=== PATIENT | male | born 1970 | race Caucasian/White ===

== ENCOUNTER 2024-05-29 06:52 | Outpatient (OUT) | payer BC, SELFPAY ==
--- NOTE | 2024-05-29 | PCN_ITS ---
CARDIAC STRESS TEST Requesting Physician: Procedure Date: 05/29/2024 This was a Lexiscan stress test with myocardial perfusion imaging, performed at the [facility] on 05/29/2024. Informed consent was obtained. The patient was attached to electrocardiographic monitoring. An intravenous line was secured. Baseline vital signs and ECG were obtained. Lexiscan 0.4 mg was infused intravenously, followed by administration of Cardiolite. The patient then went on to obtain myocardial perfusion imaging. Resting heart rate was 55 BPM and resting blood pressure was 134/86. Maximum heart rate was 95 BPM and maximum blood pressure was 134/86. Resting ECG showed sinus bradycardia with no ischemic changes. ECG following infusion of Lexiscan showed sinus rhythm with no ST changes and no arrhythmias. Final ECG was comparable to baseline. SUMMARY OF THE FINDINGS: 1. No evidence of ischemic ST changes seen following infusion of Lexiscan. 2. Myocardial perfusion imaging will be reported separately. MTDD
--- NOTE | 2024-05-29 | NM_ITS ---
Patient Name: SHAD IRVIN MR#: [id number] : 1970 Exam Date: 05/29/2024 Ordering Doctor: DR COBY COATES M.D. RADIOLOGY REPORT PROCEDURE: NM KIESHA PERF SPECT REST STR COMPARISON: None. 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 Euceda . For more details please see separate cardiac stress test report. FINDINGS: QUALITY OF STUDY: PERFUSION DEFECT: LOCATION: Basal inferoseptal. Basal inferior. Mid-anterior. Mid-inferior. Apical inferior. [place]. SIZE: Large (5 or more segments). SEVERITY: Moderate. TYPE: Persistent. WALL MOTION: Mild hypokinesis: LV SIZE: Normal. 119 mL. TID / TCD: None; 0.9 LVEF: Normal. Calculated EF 55%. SUMMARY: Myocardial perfusion imaging study has ABNORMAL findings. CONCLUSION: 1. No redistribution to suggest reversible ischemia 2. Small area of mildly decreased uptake in the mid anterior wall, LAD distribution, no redistribution 3. Large transmural area decreased uptake in the inferior wall, RCA distribution, no redistribution 4. Borderline low left ventricular ejection fraction 55% 5. Borderline left ventricular enlargement left ventricular size of 119 milliliters 6. Normal exercise test Dictated by: Gustavo Ascencio MD on 05/30/2024 at 10:27 Approved by: Gustavo Ascencio MD on 05/30/2024 at 10:30
[2024-05-29] MEDS: REGADENOSON 0.4 MG/5 ML SYRINGE IV (09:34)
--- NOTE | 2024-05-29 09:35 | PC.NURSE ---
Nursing Note Cardiac Stress Test Reviewed: Medication, allergies and patient history reviewed. Stress Test: [ x] Patient tolerated stress test well. [ ] Patient unable to tolerate walking on treadmill. Switched to Lexiscan stress test. [x ] No chest pain noted per patient [ ] Chest pain that resolved prior to leaving stress lab. [x ] No dyspnea noted. [ ] Dyspnea that resolved prior to leaving stress lab. [x ] Patient left stress lab asymptomatic and hemodynamically stable. [ ] Patient taken to the Emergency Room due to non-resolving symptoms following stress test. [ ] Patient achieved target heart rate. [ ] Patient unable to achieve target heart rate. [ ] Aminophylline administered as reversal agent to Lexiscan (Regadenoson). [ ] Nitro administered. Nursing Comments:
== END 2024-05-29 06:53 | disposition home or self-care (01) ==
LOC: NM 06:52
PROVIDERS: Visit Provider Internal Medicine Interventional Cardiology
DX: I25.10 Atherosclerotic heart disease of native coronary artery without angina pectoris (principal); I25.83 Coronary atherosclerosis due to lipid rich plaque
CPT/HCPCS: 78452; 93017; A9500; J2785